=== PATIENT | female | born 1945 | race Caucasian/White ===

== ENCOUNTER → 2016-08-19 | Outpatient (CLI) | payer MEDICARE ==
[~2016-08-19] MED LIST: ASPI-496 PO; CETI10CA PO; ESCI10TA PO; FLUT9.9S NAS; LOSA50TA6 PO; MULT-108 PO; OLOP30.53 NAS; OMEG1CAP12 PO; OXYB5TAB7 PO; PIOG45TA PO; PSEU30TA PO; SIMV20TA3 PO; UBID1CAP24 PO
[2016-08-19 13:18] LABS: PATH.CAST-FLAG NOT PRESENT; SPERM-FLAG NOT PRESENT; SRC-FLAG NOT PRESENT; XTAL-FLAG NOT PRESENT; YLC-FLAG NOT PRESENT
[2016-08-19 13:24] LABS: ASPARTATE AMINO TRANSFERASE 23 U/L (15-37); BLOOD UREA NITROGEN 25 mg/dL (7-18)
== END | disposition home or self-care (01) ==
LOC: LAB 09:23
PROVIDERS: ATTEND Physician Assistant
DX: M47.894 Other spondylosis, thoracic region (principal); M48.04 Spinal stenosis, thoracic region; M25.78 Osteophyte, vertebrae
CPT/HCPCS: 36415; 72072; 80053; 80061; 81001; 87086

== ENCOUNTER → 2017-03-20 | Outpatient (CLI) | payer MEDICARE ==
[~2017-03-20] MED LIST changes: -OMEG1CAP12 PO; +OMEG1CAP23 PO; -PIOG45TA PO; +PIOG45TA3 PO; -UBID1CAP24 PO; +UBID1CAP43 PO
== END ==
LOC: CFH 11:21
PROVIDERS: ATTEND Physician Assistant
DX: I10 Essential (primary) hypertension (principal); F06.4 Anxiety disorder due to known physiological condition; E55.9 Vitamin D deficiency, unspecified; E11.65 Type 2 diabetes mellitus with hyperglycemia; R01.1 Cardiac murmur, unspecified; G47.09 Other insomnia; M54.5 Low back pain; Z12.11 Encounter for screening for malignant neoplasm of colon; Z12.39 Encounter for other screening for malignant neoplasm of breast; Z12.4 Encounter for screening for malignant neoplasm of cervix; F41.9 Anxiety disorder, unspecified; R79.9 Abnormal finding of blood chemistry, unspecified; C43.9 Malignant melanoma of skin, unspecified; N28.9 Disorder of kidney and ureter, unspecified; L81.8 Other specified disorders of pigmentation
CPT/HCPCS: 36415; 80061; 80076

== ENCOUNTER → 2017-06-29 | Outpatient (CLI) | payer MEDICARE ==
[~2017-06-29] MED LIST changes: +OMNIPAQUE 350 MG/ML, 75ML BOTTLE ONE
== END | disposition home or self-care (01) ==
LOC: CFH 09:14
PROVIDERS: ATTEND Physician Assistant
DX: R91.8 Other nonspecific abnormal finding of lung field (principal); I10 Essential (primary) hypertension; F06.4 Anxiety disorder due to known physiological condition; E55.9 Vitamin D deficiency, unspecified; E11.65 Type 2 diabetes mellitus with hyperglycemia; E78.2 Mixed hyperlipidemia; R01.1 Cardiac murmur, unspecified; G47.09 Other insomnia; M54.5 Low back pain; R79.9 Abnormal finding of blood chemistry, unspecified; R93.1 Abnormal findings on diagnostic imaging of heart and coronary circulation; C43.9 Malignant melanoma of skin, unspecified; N28.9 Disorder of kidney and ureter, unspecified; L81.9 Disorder of pigmentation, unspecified; M54.9 Dorsalgia, unspecified; R06.02 Shortness of breath
CPT/HCPCS: 71260; Q9967